=== PATIENT | male | born 1990 | race Caucasian/White ===

== ENCOUNTER 2020-08-04 15:24 | Emergency (ER) | payer SELFPAY ==
[~2020-08-04] VITALS: Ht 175.3 cm; Wt 69.9 kg
[2020-08-04 15:26] VITALS: BP 112/75
[2020-08-04] MEDS ORDERED: IBUPROFEN 600 MG TABLET ONE (15:47)
--- NOTE | 2020-08-04 15:51 | NUR ---
PT AMBULATED TO BR INDEPENDENTLY. UA OBTAINED.
[2020-08-04] MEDS ORDERED: IBUPROFEN 600 MG TABLET PO ONE (16:00)
== END 2020-08-04 16:23 | disposition home or self-care (01) ==
LOC: ED 16:00
DX: G89.11 Acute pain due to trauma (principal); M25.512 Pain in left shoulder; F15.10 Other stimulant abuse, uncomplicated; F17.210 Nicotine dependence, cigarettes, uncomplicated; W01.0XXA Fall on same level from slipping, tripping and stumbling without subsequent striking against object, initial encounter; Y93.89 Activity, other specified; Y92.410 Unspecified street and highway as the place of occurrence of the external cause; Y99.8 Other external cause status
CPT/HCPCS: 99406